=== PATIENT | male | born 1960 | race Caucasian/White ===

== ENCOUNTER 2017-02-06 11:38 | Outpatient (CLI) | payer OTHER ==
--- NOTE | 2017-02-06 14:36 | RAD ---
THREE VIEWS THORACIC SPINE: History: Chronic midback pain. Comparison: None. FINDINGS: There is kyphosis without significant loss of vertebral body height. Mild loss of disc space height with osteophyte formation in the thoracic spine is noted. Mild rightward curvature. IMPRESSION: Mild degenerative change, presumed to be chronic. Consider MRI if warranted. POS: CÉSAR
--- NOTE | 2017-02-06 14:40 | RAD ---
THREE VIEWS LUMBAR SPINE: History: Chronic midline back pain. Comparison: None. FINDINGS: There are five lumbar type vertebral bodies. Vertebral body height is maintained. Disc space height is preserved. No spondylolisthesis or spondylosis. IMPRESSION: No significant degenerative change. MRI if warranted. POS: CÉSAR
== END 2017-02-06 11:39 | disposition home or self-care (01) ==
LOC: MADLABBHPM 11:38
PROVIDERS: ATTEND Family Medicine
DX: M54.89 Other dorsalgia (principal); M47.814 Spondylosis without myelopathy or radiculopathy, thoracic region
CPT/HCPCS: 36415; 72072; 72100; 85652; 86140; 86812

== ENCOUNTER 2017-02-14 07:54 | Outpatient (CLI) | payer OTHER ==
[2017-02-14 14:34] LABS: Hemoglobin 18.7 g/dL (14.0-18.0); Mean Corpuscular HGB CONC 31.8 g/dL (32.0-36.0); Mean Corpuscular Hemoglobin 29.4 pg (27.0-31.0); Mean Corpuscular Volume 92.5 fL (80.0-94.0); Mean Platelet Volume 7.3 fL (7.4-10.4); Platelet Count 208 thou/uL (130-400); RBC Distribution Width 12.5 % (11.5-14.5); Red Blood Cell (RBC) Count 6.35 mill/uL (4.70-6.10); White Blood Cell (WBC) Count 12.2 thou/uL (4.8-10.8)
[2017-02-14 14:37] LABS: Anion Gap 15 mmol/L (10-20); BUN (Urea Nitrogen) 8 mg/dL (8.4-25.7); Carbon Dioxide 25 mmol/L (22-29); Chloride 102 mmol/L (98-107); Potassium 4.4 mmol/L (3.5-5.1); Sodium 138 mmol/L (136-145)
[2017-02-14 14:38] LABS: ALT (SGPT) 36 U/L (8-55); AST (SGOT) 34 U/L (5-34); Albumin 3.9 g/dL (3.5-5.0); Alkaline Phosphatase 58 U/L (40-150); Bilirubin, Total 0.8 mg/dL (0.2-1.2); Calc. Creatinine Clearance 0 mL/min (70-130); Calcium 9.4 mg/dL (7.8-10.44); Cholesterol 197 mg/dL (< 200 Desired); Estimated GFR-MDRD 69; Glucose 123 mg/dL (70-105); Protein, Total 7.9 g/dL (6.0-8.3); Triglycerides 64 mg/dL (Less than 150)
[2017-02-14 14:39] LABS: Cardiac Risk 2.7 (Less than 4.5); Clarity Clear (Clear); Glucose, Urine (Dipstick) Negative (Negative); HDL Cholesterol 72 mg/dL (>60 Neg Risk); LDL Cholesterol, Calculated 112 mg/dL; Leukocyte Negative (Negative); Nitrite Negative (Negative); Protein, Urine (Dipstick) Negative (Neg-Trace); Specific Gravity, Urine 1.015 (1.005-1.030); Thyroid Stimulating Hormone 0.6029 uIU/mL (0.35-4.94); Vitamin D, 25 Hydroxy 24.7 ng/mL (> 30.0); pH, Urine 5.5 (5.0-9.0)
[2017-02-14 14:40] LABS: Bilirubin Negative (Negative); Blood, Urine Negative (Negative); Urobilinogen 0.2 mg/dL (0.2-1.0)
[2017-02-14 14:51] LABS: Lymphocytes 6 % (21-51); MDiff Complete? YES; Manual Diff?? YES; Monocytes 2 % (0-10); Neutrophil 92 % (42-75)
[2017-02-14 14:52] LABS: PLT Morphology Comment Appears Adequate
== END 2017-02-14 07:55 | disposition home or self-care (01) ==
LOC: MADLAB 07:54
PROVIDERS: ATTEND Internal Medicine
DX: E78.5 Hyperlipidemia, unspecified (principal); I10 Essential (primary) hypertension; D53.9 Nutritional anemia, unspecified; E03.9 Hypothyroidism, unspecified; E55.9 Vitamin D deficiency, unspecified; Z79.899 Other long term (current) drug therapy
CPT/HCPCS: 36415; 80053; 80061; 81003; 82306; 84443; 85025

== ENCOUNTER 2017-03-09 11:02 | Outpatient (CLI) | payer OTHER ==
[2017-03-09 12:14] LABS: #Basophils 0.1 thou/uL (0.0-0.2); #Eosinphils 0.2 thou/uL (0.0-0.7); #Monocytes 0.6 thou/uL (0.11-0.59); #Neutrophils 5.2 thou/uL (1.40-6.50); %Basophils 1.6 % (0.0-1.0); %Eosinophils 2.7 % (0.0-10.0); %Lymphocytes 14.1 % (21.0-51.0); %Neutrophils 72.6 % (42.0-75.0); Mean Corpuscular HGB CONC 31.5 g/dL (32.0-36.0); Mean Corpuscular Hemoglobin 29.2 pg (27.0-31.0); Mean Corpuscular Volume 92.6 fl (80.0-94.0); Mean Platelet Volume 7.2 fL (7.4-10.4); Platelet Count 187 thou/uL (130-400); RBC Distribution Width 12.5 % (11.5-14.5); Red Blood Cell (RBC) Count 6.16 mill/uL (4.70-6.10); White Blood Cell (WBC) Count 7.1 thou/uL (4.8-10.8)
== END 2017-03-09 11:03 | disposition home or self-care (01) ==
LOC: MADLAB 11:02
DX: Z00.00 Encounter for general adult medical examination without abnormal findings (principal)
CPT/HCPCS: 36415; 85025

== ENCOUNTER 2017-03-20 07:30 | Outpatient (CLI) | payer OTHER ==
--- NOTE | 2017-03-20 09:11 | ULT ---
ULTRASOUND ABDOMEN COMPLETE: HISTORY: 56-year-old male with leukocytosis. Rule out splenomegaly. FINDINGS: Liver: Partially obscured by bowel gas. Gallbladder: Surgically absent. Common duct: 4 mm. Spleen: 9 x 4.5 x 4.5 cm. Pancreas: Poorly visualized and also poorly visualized due to body habitus. Kidneys: No hydronephrosis. Abdominal aorta: No aneurysm. Inferior vena cava: Poorly visualized. IMPRESSION: 1. Large amount of bowel gas obscuring much of the abdominal contents. 2. No splenomegaly. 3. Status post cholecystectomy. CAROLEE Mijares POS: ANGELA
== END 2017-03-20 07:31 | disposition home or self-care (01) ==
LOC: MADULT 07:30
PROVIDERS: ATTEND Internal Medicine Medical Oncology
DX: D75.1 Secondary polycythemia (principal); Z90.49 Acquired absence of other specified parts of digestive tract
CPT/HCPCS: 76700

== ENCOUNTER 2019-12-04 13:03 | Outpatient (CLI) | payer OTHER ==
--- NOTE | 2019-12-04 16:05 | RAD ---
PA AND LATERAL VIEWS OF THE CHEST: 12/04/19 HISTORY: Cough. COMPARISON: 09/14/15. The heart size is normal. No focal areas of consolidation, pneumothoraces, or pleural effusions are s een. There are degenerative changes in the spine. IMPRESSION: No radiographic evidence of acute cardiopulmonary process. POS: QUEENIEA
== END 2019-12-04 13:04 | disposition home or self-care (01) ==
LOC: MADRAD 13:03
PROVIDERS: ATTEND Internal Medicine
DX: R05 Cough (principal)
CPT/HCPCS: 71046

== ENCOUNTER 2021-11-15 10:01 | Outpatient (CLI) | payer BC, OTHER ==
[2021-11-15 10:18] LABS: #Basophils 0.1 thou/uL (0.0-0.2); #Eosinphils 0.1 thou/uL (0.0-0.7); #Lymphocytes 1.3 thou/uL (1.20-3.40); #Monocytes 0.4 thou/uL (0.11-0.59); #Neutrophils 4.1 thou/uL (1.40-6.50); %Basophils 1.5 % (0.0-1.0); %Eosinophils 2.1 % (0.0-10.0); %Lymphocytes 21.6 % (21.0-51.0); %Monocytes 6.7 % (0.0-10.0); %Neutrophils 68.1 % (42.0-75.0); Hemoglobin 18.3 g/dL (14.0-18.0); Mean Corpuscular HGB CONC 33.3 g/dL (32.0-36.0); Mean Corpuscular Hemoglobin 30.2 pg (27.0-31.0); Mean Corpuscular Volume 90.6 fL (78.0-98.0); Mean Platelet Volume 8.4 fL (7.4-10.4); Platelet Count 201 thou/uL (130-400); RBC Distribution Width 12.7 % (11.5-14.5); Red Blood Cell (RBC) Count 6.06 mill/uL (4.70-6.10)
[2021-11-15 10:54] LABS: ALT (SGPT) 59 U/L (8-55); AST (SGOT) 52 U/L (5-34); Albumin 3.8 g/dL (3.5-5.0); Alkaline Phosphatase 110 U/L (40-110); Anion Gap 16 mmol/L (10-20); BUN (Urea Nitrogen) 11 mg/dL (8.4-25.7); Bilirubin, Total 1.3 mg/dL (0.2-1.2); Calc. Creatinine Clearance 0 mL/min (70-130); Carbon Dioxide 28 mmol/L (22-29); Cardiac Risk 2.6 (Less than 4.5); Chloride 100 mmol/L (98-107); Cholesterol 166 mg/dl (< 200 Desired); Globulin 4.1 g/dL (2.4-3.5); Glucose 106 mg/dL (70-105); HDL Cholesterol 65 mg/dL (>60 Neg Risk); LDL Cholesterol, Calculated 86 mg/dL; Potassium 4.5 mmol/L (3.5-5.1); Protein, Total 7.9 g/dL (6.0-8.3); Sodium 139 mmol/L (136-145); Triglycerides 76 mg/dL (Less than 150)
== END 2021-11-15 10:02 | disposition home or self-care (01) ==
LOC: MADLAB 10:01
PROVIDERS: ATTEND Internal Medicine Endocrinology, Diabetes & Metabolism
DX: R05.9 Cough, unspecified (principal); E29.1 Testicular hypofunction; E22.8 Other hyperfunction of pituitary gland; N42.9 Disorder of prostate, unspecified
CPT/HCPCS: 36415; 71046; 80053; 80061; 82672; 84146; 84403; 85025

== ENCOUNTER 2025-04-20 09:01 | Outpatient (CLI) | payer BC ==
[2025-04-20 09:44] LABS: Hematocrit 52.6 % (42.0-52.0); Hemoglobin 17.2 g/dL (14.0-18.0); MDiff Complete? YES; Mean Corpuscular Hemoglobin 31.3 pg (27.0-31.0); Mean Corpuscular Volume 96.0 fl (78.0-98.0); Platelet Adequacy Comment Appears Adequate; Platelet Count 220 10x3/uL (130-400); Red Blood Cell (RBC) Count 5.48 mill/uL (4.70-6.10); White Blood Cell (WBC) Count 4.7 10x3/uL (4.8-10.8)
[2025-04-20 10:05] LABS: ALT (SGPT) 82 U/L (Less than 45); AST (SGOT) 115 U/L (11-34); Albumin 3.6 g/dL (3.1-4.5); Alkaline Phosphatase 82 U/L (40-110); Anion Gap 19 mmol/L (10-20); BUN (Urea Nitrogen) 4 mg/dL (8.4-25.7); Bilirubin, Total 0.8 mg/dL (0.3-1.2); Calc. Creatinine Clearance 0 mL/min (70-130); Calcium 9.0 mg/dL (7.8-10.44); Carbon Dioxide 24 mmol/L (23-31); Cardiac Risk 2.8 (Less than 4.5); Chloride 101 mmol/L (98-107); Cholesterol 210 mg/dl (< 200 Desired); Globulin 4.2 g/dL (2.4-3.5); Glucose 114 mg/dL (80-115); HDL Cholesterol 76 mg/dL (>60 Neg Risk); LDL Cholesterol, Calculated 119 mg/dL; Potassium 5.5 mmol/L (3.5-5.1); Sodium 138 mmol/L (136-145); Triglycerides 74 mg/dL (Less than 150)
== END 2025-04-20 09:02 | disposition home or self-care (01) ==
LOC: MADLAB 09:01
PROVIDERS: ATTEND Internal Medicine Endocrinology, Diabetes & Metabolism
DX: E22.1 Hyperprolactinemia (principal); N42.9 Disorder of prostate, unspecified; E22.8 Other hyperfunction of pituitary gland; E29.1 Testicular hypofunction; R53.83 Other fatigue
CPT/HCPCS: 36415; 80053; 80061; 82672; 84146; 84403; 85025